=== PATIENT | male | born 1990 | race Caucasian/White ===

== ENCOUNTER 2018-08-19 12:17 | Emergency (ER) | payer OTHER ==
[~2018-08-19] VITALS: Ht 185.4 cm; Wt 81.6 kg
[2018-08-19 12:18] VITALS: BP 122/75
[2018-08-19] MEDS ORDERED: OLANZAPINE 5 MG TABLET ONE (12:29)
[2018-08-19] MEDS ORDERED: OLANZAPINE 5 MG TABLET PO ONE (12:30)
== END 2018-08-19 13:07 | disposition home or self-care (01) ==
LOC: ER 12:20
DX: F45.8 Other somatoform disorders (principal)